=== PATIENT | female | born 1930 | race Caucasian/White ===

== ENCOUNTER 2017-10-31 15:06 | Inpatient (IN) | payer MEDICARE, BC ==
[2017-10-31] MEDS ORDERED: CYCLOBENZAPR10 MG PO (19:15)
[2017-10-31] MEDS ORDERED: COUMADIN4 MG PO (19:15)
[2017-10-31] MEDS ORDERED: CYMBALTA30 MG PO (19:16)
[2017-10-31] MEDS ORDERED: LASIX 40 MG TAB40 MG PO (19:16)
[2017-10-31] MEDS ORDERED: METOPROL TAR25 MG PO (19:17)
[2017-10-31] MEDS ORDERED: HYDROCODONE/ACE1 TAB PO (19:17)
[2017-10-31] MEDS ORDERED: ZOCOR20 M1 PO (19:18)
[2017-10-31] MEDS ORDERED: PRILOSEC20 MG PO (19:18)
[2017-10-31] MEDS ORDERED: XANAX0.25 MG PO (19:19)
[2017-10-31] MEDS ORDERED: VASOTEC2.5 MG PO (19:19)
== END 2017-11-04 11:52 | disposition home or self-care (01) | DRG 554 ==
LOC: MS2 11-04 10:20
PROVIDERS: ADMIT Orthopaedic Surgery; ATTEND Orthopaedic Surgery
DX: M17.12 Unilateral primary osteoarthritis, left knee (principal); L98.9 Disorder of the skin and subcutaneous tissue, unspecified; Z53.09 Procedure and treatment not carried out because of other contraindication

== ENCOUNTER 2018-03-06 13:57 | Inpatient (IN) | payer MEDICARE, BC ==
[~2018-03-06] VITALS: Ht 162.6 cm; Wt 64.9 kg
[~2018-03-06 13:57] MED LIST: COUMADIN4 MG PO; CYCLOBENZAPR10 MG PO; CYMBALTA30 MG PO; HYDROCODONE/ACE1 TAB PO; LASIX 40 MG TAB40 MG PO; METOPROL TAR25 MG PO; PRILOSEC20 MG PO; VASOTEC2.5 MG PO; XANAX0.25 MG PO; ZOCOR20 M1 PO
[2018-03-10] VITALS (7 sets, daily range): BP systolic 101–144; BP diastolic 40–64
[2018-03-10 12:06] LABS: ACT PARTIAL THROMBO TIME 26.4 SECONDS (20.0-32.5); INTERNATIONAL NORMALIZED RATIO 1.1 RATIO (0.7-1.3); PROTHROMBIN TIME 11.5 SECONDS (9.0-12.5)
--- NOTE | 2018-03-10 16:45 | NUR ---
BEDSIDE REPORT FROM PAYAL MAY ARRIVED ON UNIT @ 1630 VIA STRETCHER AND TRANSFERRED TO BED. LETHARGIC BUT ORIENTED, DENIED PAIN. DRESSING TO LEFT LEG CDI, PEDAL PULSES STRONG TO PALPATION. ORIENTED TO ROOM AND CALL CALDERON, VITAL SIGNS BEING MEASURED, FAMILY MEMBERS IN ROOM, WILL CONTINUE TO MONITOR
--- NOTE | 2018-03-10 20:00 | NUR ---
PATIENT RESTING IN BED WITH O2 VIA NASAL CANNULA IN PLACE. PATIENT SOB AT REST. PATIENT WITH TELE MONITOR IN PLACE. SALINE LOCK TO LEFT FOREARM INTACT AND IS HEALTHY AT THIS TIME. PATIENT WITH MULTIPLE BRUISING TO EXTREMITIES. SAFETY PRECAUTIONS REINFORCED. CALL LIGHT IN REACH. WILL CONT TO MONITOR.
--- NOTE | 2018-03-11 | NUR ---
PATIENT RESTING IN BED-MEDICATED WITH XANAX ZND ROBITUSSIN AC PER PATIENT REQUEST. SOLU-MEDROL GIVEN ORDERED. IV ZOSYN HUNG. SAFETY PRECAUTIONS REINFORCED. CALL LIGHT IN REACH. WILL CONT TO MONITOR.
[2018-03-11 00:10] VITALS: BP 122/59
--- NOTE | 2018-03-11 02:16 | NUR ---
PATIENT RESTING IN BED-ASSISTED OOB TO THE [facility] [place] WITH USE OF THE WALKER. PATIENT WAS ABLE TO VOID 350CC OF YELLOW URINE. RANDOLPH-CARE WITH SOAP AND WATER WAS DONE AND PATIENT ASSISTED BACK TO THE BED. PATIENT INSTRUCTED ON USE OF IS Q1H WHILE AWAKE-PATIENT IS ABLE TO DEMONSTRATE PROPER USE OF THE DEVICE. ENCOURAGED CDB EXERCISES. DRESSING TO KNEE IS CDL SECURED WITH KENNETH WRAP. PATIENT MEDICATED FOR POST-OP PAIN WITH DILAUDID 1MG IVP. ICE P ACK APPLIED TO POST-OP KNEE. IVF PATENT AND INFUSING AT 100CC/HR ORDERED. SAFETY PRECAUTIONS REINFORCED. CALL LIGHT IN REACH. WILL CONT TO MONITOR.
--- NOTE | 2018-03-11 04:00 | NUR ---
PATIENT APPEARS SLEEPING AT THIS TIME WITH EYES CLOSED. RESP ARE EVEN AND UNLABORED. IVF PATENT AND INFUSING AT 100CC/HR. SITE REMAINS HEALTHY. DRESSING TO LEFT KNEE INTACT AND SECURED WITH KENNETH WRAP. ICE PACK TO LEFT KNEE ORDERED. SCD'S IN PLACE. BED ALARM IN PLACE FOR PATIENT SAFETY. CALL LIGHT IN REACH. WILL CONT TO MONITOR.
[2018-03-11 04:41] VITALS: BP 136/68
[2018-03-11 05:12] LABS: HEMATOCRIT 28.3 % (37.0-47.0); HEMOGLOBIN 9.2 g/dl (12.0-16.0)
[2018-03-11 05:27] LABS: INTERNATIONAL NORMALIZED RATIO 1.1 RATIO (0.7-1.3)
--- NOTE | 2018-03-11 07:00 | NUR ---
REPORT RECEIVED FROM IKER KESSLER. PT RESTING IN BED. NO SIGNS OR SYMPTOMS OF DISTRESS AT THIS TIME. SAFETY PRECAUTOINS IN PLACE, CALL LIGHT WITHIN REACH. WILL CONTINUE TO MONITOR.
[2018-03-11 07:47] VITALS: BP 141/63
--- NOTE | 2018-03-11 08:00 | NUR ---
PT RESTING IN BED. ALERT AND ORIENTED. VS OBTAINED AND ASSESSMENT COMPLETED. RESPIRATIONS EVEN AND UNLABORED, ON RA. LUNGS SOUND CLEAR. BOWEL SOUNDS HYPOACTIVE. PEDAL PULSES STRONG. IV # 20 LF HAND, APPEARS HEALTHY, PATENT. KENNETH WRAP OVER LT KNEE, CLEAN, DRY AND IN TACT. SAFETY PRECAUTIONS IN PLACE. CALL LIGHT WITHIN REACH. WILL CONTINUE TO MONITOR.
--- NOTE | 2018-03-11 12:00 | NUR ---
PT RESTING IN BED. PT ASSISTED MOVING INTO THE RECLINER AT BEDSIDE TO EAT LUNCH PER PT REQUEST. CALL LIGHT IN REACH. SAFETY PRECAUTIONS IN PLACE. WILL CONTINUE TO MONITOR.
--- NOTE | 2018-03-11 16:00 | NUR ---
PT RESTING IN RECLINER AT BED SIDE. NO SIGNS OF DISTRESS. BED ALARM ACTIVE FOR PT SAFETY. CALL LIGHT WITHIN REACH. WILL CONTINUE TO MONITOR.
[2018-03-11 16:46] VITALS: BP 137/67
--- NOTE | 2018-03-11 17:04 | NUR ---
Patient refused physical therapy this evening stating she had just been up for a while attempting to have BM and is tired. She refused treatment, however was ok with verbal review of exercises consisting of quad sets and heel slides. The patient was left resting comfortably in bed with call light and bedside table left within reach, nurse informed of same.
[2018-03-11 19:30] VITALS: BP 151/67
--- NOTE | 2018-03-11 19:45 | NUR ---
PATIENT RESTING IN BED-AWAKE ALERT AND ORIENTEDX2 C/O POST-OP LEFT KNEE PAIN. 7/10 ON PAIN SCALE-MEDICATED WITH DILAUDID 1MG IVP FOR POST-OP PAIN AND WITH XANAX FOR ANXIETY. PATIENT WITH IV SITE TO RIGHT FOREARM SITE IS HEALTHY WITH GOOD BLOOD RETURN. LEFT KNEE DRESSING INTACT-SECURED WITH KENNETH WRAP. ICE PACK TO LEFT KNEE ORDERED. SLIGHT SWELLING NOTED TO LLE AND KNEE. SCD TO RLE IN PLACE. ENCOURAGED USE OF IS Q1H WHILE AWAKE-NEEDS REINFORCEMENT. LUNGS ARE CLEAR. ABD REMAINS DISTENDED WITH BS+. VOIDED QS 400CC OF YELLOW URINE BEFORE GOING TO BED. BED ALARM IN PLACE FOR PATIENT SAFETY. SAFETY PRECAUTIONS REINFORCED. CALL LIGHT IN REACH. WILL CONT TO MONITOR.
--- NOTE | 2018-03-11 22:23 | NUR ---
PATIENT CALLING OUT-CONFUSED AND REOIENTED TO PLACE AND TIME. ASSISTED OOB TO BSC TO VOID 300CC OF URINE AND ASSISTED BACK INTO BED. BED ALARM IN PLACE FOR PATIENT SAFETY. REINFORCED SAFETY PRECAUTIONS. CALL LIGHT IN REACH. WILL CONT TO MONITOR.
[2018-03-12 00:16] VITALS: BP 120/61
--- NOTE | 2018-03-12 02:00 | NUR ---
PATIENT SITTING UP IN RECLINER-C/O POST-OP PAIN-MEDICATED WITH PERCOCET 10/325MG PO. CONFUSED AT TIMES BUT REORIENTS EASILY. ALARM IN PLACE FOR PATIENT PROTECTION. SAFETY PRECAUTIONS REINFORCED. CALL LIGHT IN REACH.. WILL CONT TO MONITOR.
--- NOTE | 2018-03-12 03:26 | NUR ---
PATIENT RESTING IN BED AT THIS TIME-POSITIONED ON LEFT SIDE WITH EYES CLOSED. RESP ARE EVEN AND UNLABORED. BED ALARM IN PLACE. CALL LIGHT IN REACH. WILL CONT TO MONITOR.
[2018-03-12 04:00] VITALS: BP 109/47
[2018-03-12 06:10] LABS: HEMATOCRIT 24.6 % (37.0-47.0); IMMATURE GRANULOCYTES 0.4 % (0.0-5.0); MEAN CELL VOLUME 95.7 fL CALC (80.0-100.0); MEAN CORPUSCULAR HGB 31.1 pG CALC (26.0-32.0); MEAN CORPUSCULAR HGB CONC 32.5 g/L CALC (32.0-36.0); NEUT# 6.08 thou/uL (2.00-7.15); RED BLOOD COUNT 2.57 mill/uL (4.20-5.60); RED CELL DISTRI WIDTH 13.3 % (11.5-15.5)
[2018-03-12 06:22] LABS: ALBUMIN 3.4 g/dL (3.2-5.0); BILIRUBIN, TOTAL 0.7 mg/dL (0.0-1.4); CREATININE 1.4 mg/dL (0.5-1.0); MAGNESIUM 1.7 mg/dL (1.6-2.3); POTASSIUM 4.6 mmol/l (3.5-5.1); TOTAL PROTEIN 5.9 g/dL (6.3-8.2)
--- NOTE | 2018-03-12 07:00 | NUR ---
REPORT RECEIVED FROM IKER KESSLER. PT SLEEPING IN BED. NOSIGNS OR SYMPTOMS OF DISTRESS. BED ALARM ACTIVE. SAFETY PRECAUTIONS IN PLACE. WILL CONTINUE TO MONITOR.
[2018-03-12 07:59] VITALS: BP 138/52
--- NOTE | 2018-03-12 08:00 | NUR ---
PT SLEEPING IN BED, EASILY AROUSED TO VOICE. VS OBTAINED AND ASSESSMENT COMPLETED AT THIS TIME. RESPIRATIONS EVEN AND UNLABORED, ON RA. LUNGS CLEAR. IV #22 RFA, PATENT, APPEARS HEALTHY. PEDAL PULSES STRONG. STOMACH DISTENDED, BOWEL SOUNDS HYPOACTIVE.PT POST OP LEFT KNEE ARTHROPLASTY DAY # 2. L KNEE INCISION CLEAN, DRY, AND INTACT. DERMABOND IS PATENT. BED IN LOWEST POSITION, BED ALARM ACTIVE FOR PT SAFETY, CALL LIGHT WITHIN REACH. WILL CONTIUE TO MONITOR.
--- NOTE | 2018-03-12 12:00 | NUR ---
PT SITTING IN RECLINER AT BEDSIDE. RESPIRATIONS EVEN AND UNLABORED, ON RA. ALARM ACTIVE FOR PT SAFETY. CALL LIGHT WITHIN REACH. WILL CONTINUE TO MONITOR.
--- NOTE | 2018-03-12 14:57 | NUR ---
Pt was supine in bed when approached by PT. Pt was eager to get out of bed and moving again. She reported that she has been doing her HEP program while she had breaks. Pt ed on proper rolling walker usage and proper sit to stand technique. Pt with noted bandage around her proximal tibia from an open wound. Pt was able to perform proper S<>S with MIN A, VC to pt for usage of hands to prop herself up and assist her in standing. Pt ed with multiple verbal and tactile cues for posture and proper RW usage. Pt tends to take a rest break and leans on the walker, she was instructed to stand tall with hands on walker and to slightly weight bear on her dominate non surgical leg. Pt was able to ambulate 15 ft 3 seperate occasions with rest breaks in between. Pt was returned to her bedside chair with call landaverde and chair alarm on. Pt to continue with HEP program and gait mechanics.
--- NOTE | 2018-03-12 15:20 | NUR ---
AM note: Pt was supine in bed and eager to begin PT treatment. She was educated on S<>S technique and RW usage with step to gait pattern. Pt with noted ROM from 15-65 deg. Pt was MIN A for S<>S and was able to ambulate 15 ft x 2 with a 20 second break in between (note: pt attempted to rest by lean her arms on the walker, pt ed on standing tall and weigh shifting to non surgical leg). Pt was returned to room to sit in her bedside chair, call landaverde next to her and chair alarm set. Pt to cont with HEP program and gait training.
[2018-03-12 15:49] VITALS: BP 112/46
--- NOTE | 2018-03-12 16:24 | NUR ---
PT RESTING IN RECLINER AT BEDSIDE. RESPIRATIONS EVEN AND UNLABORED ON RA. BED ALARM ACTIVE FOR PT SAFETY. SAFETY PRECAUTIONS IN PLACE. CALL LIGHT WITHIN REACH. WILL CONTINUE TO MONITOR.
[2018-03-12 19:17] VITALS: BP 139/81
--- NOTE | 2018-03-12 19:30 | NUR ---
PATIENT RESTING IN BED AT THIS TIME-AWAKE ALERT AND ORIENTEDX3. SALINE LOCK TO RIGHT FOREARM INTACT AND APPEARS HEALTHY AT THIS TIME. LEFT KNEE INCISION INTACT AND WELL APPROXIMATED WITH DERMABOND. ENCOURAGED USE OF IS Q1H WHILE AWAKE. SCD TO RLE. DECLINES ANY ICE PACK AT THIS TIME, BED ALARM IN PLACE FOR PATIENT SAFETY. SAFETY PRECAUTIONS REINFORCED, CALL LIGHT IN REACH, WILL CONT TO MONITOR.
--- NOTE | 2018-03-12 20:30 | NUR ---
PATIENT MEDICATED FOR PAIN WITH PERCOCET FOR POST-OP PAIN. GIVEN LACTULOSE FOR POST-OP CONSTIPATION. XANAX 0.5MG GIVEN TO ASSIST WITH SLEEPING. BED ALARM IN PLACE FOR PATIENT SAFETY. CEDRICK LIGHT IN REACH. WILL CONT TO MONITOR.
--- NOTE | 2018-03-12 22:26 | NUR ---
APPEARS SLEEPING POSITIONED ON LEFT SIDE WITH EYES CLOSED. RESP ARE EVEN AND UNLABORED. BED ALARM IN PLACE. CALL LIGHT IN REACH. WILL CONT TO MONITOR.
[2018-03-13] VITALS (10 sets, daily range): BP systolic 100–126; BP diastolic 45–64
--- NOTE | 2018-03-13 01:44 | NUR ---
APPEARS SLEEPING AT THIS TIME WITH HOB ELEVATED AND EYES CLOSED. BED ALARM IN PLACE FOR PATIENT SAFETY. CALL LIGHT IN REACH. WILL CONT TO MONITOR.
--- NOTE | 2018-03-13 05:00 | NUR ---
PATIENT UP TO THE BSC-PASSING GAS BUT NO BM YET. ASSISED BACK TO THE BED. MEDICATED FOR POST-OP LEFT KNEE PAIN WITH PERCOCET. BED ALARM IN PLACE. CALL LIGHT IN REACH. WILL CONT TO MONITOR.
--- NOTE | 2018-03-13 07:00 | NUR ---
REPORT RECEIVED FROM IKER KESSLER.PT RESTING IN SUPINE POSITION;INTRODUCED SELF TO PT AND POC DISCUSSED;RESPIRATIONS EVEN AND UNLABORED ON RA;PT DENIES ANY CURRENT PAIN OR NEEDS;FALL PRECAUTIONS IN PLACE WITH BED IN THE LOWEST POSITION AND BED ALARM ON FOR SAFETY;CALL LIGHT IN REACH;WILL CONTINUE TO MONITOR
[2018-03-13 07:36] LABS: IMMATURE GRANULOCYTES 0.3 % (0.0-5.0); MEAN CELL VOLUME 95.5 fL CALC (80.0-100.0); MEAN CORPUSCULAR HGB 30.7 pG CALC (26.0-32.0); MEAN CORPUSCULAR HGB CONC 32.1 g/L CALC (32.0-36.0); RED BLOOD COUNT 1.99 mill/uL (4.20-5.60); RED CELL DISTRI WIDTH 13.5 % (11.5-15.5)
--- NOTE | 2018-03-13 07:55 | NUR ---
CALL RECEIVED BY IKER GARZA; CRITICAL HEMOGLOBIN OF 6.1;RESULTS TO BE CALLED TO .
[2018-03-13 07:56] LABS: HEMOGLOBIN 6.1 g/dl (12.0-16.0)
--- NOTE | 2018-03-13 08:04 | NUR ---
NOTIFIED OF CRITICAL HEMOGLOBIN OF 6.1; NEW ORDERS TO TRANSFUSE 2 UNITS OF PRBC'S OBTAINED.WILL CONTINUE TO MONITOR
[2018-03-13 08:05] LABS: BILIRUBIN, TOTAL 0.7 mg/dL (0.0-1.4); CREATININE 1.4 mg/dL (0.5-1.0); MAGNESIUM 1.9 mg/dL (1.6-2.3); POTASSIUM 4.2 mmol/l (3.5-5.1); TOTAL PROTEIN 5.6 g/dL (6.3-8.2)
[2018-03-13 08:07] LABS: INTERNATIONAL NORMALIZED RATIO 1.1 RATIO (0.7-1.3); PROTHROMBIN TIME 11.4 SECONDS (9.0-12.5)
--- NOTE | 2018-03-13 09:05 | NUR ---
PT OOB RESTING IN RECLINER;VS OBTAINED AND ASSESSMENT COMPLETED;PT AMBULATED TO BEDSIDE COMMODE AND VOIDED CLEAR/YELLOW URINE;RE-POSITIONED INTO RECLINER;RESPIRATIONS EVEN AND UNLABORED ON RA, CLEAR LUNG SOUNDS NOTED;I.S. AT BEDSIDE AND PT DEMONSTRATED USE;ENCOURAGED TO USE 10X PER HOUR;ABDOMEN DISTENDED/SOFT ON PALPATION, LACTULOSE TO BE GIVEN TO ENCOURAGED BM.LAST BM 03/10/18;WEAK PEDAL PULSES;PT IS A POST OP LEFT KNEE ARTHROPLASTY 03/10/18;EDEMA NOTED TO LEFT KNEE;DEROBOND INTACT;SMALL OPEN AREA NOTED BELOW THE KNEE WHICH IS SECURED WITH TELFA,KERLEX AND PAPER TAPE DRESSING;LEFT KNEE WARM TO TOUCH;ENCOURAGED ELEVATION AND APPLICATION OF ICE PACKS;SKIN INTACT;#22G TO RIGHT FOREARM FLUSHED AND PATENT,SITE APPEARS HEALTHY;PT REPORTS PAIN TO LEFT KNEE RATING 5/10 ON THE PAIN SCALE AND REQUESTS PAIN MEDICATION;PT MEDICATED WITH PRN PERCOCET 10/325MG 1 COMBO PO;PT DENIES ANY ADDITIONAL NEEDS AND IS ENCOURAGED TO CALL FOR ASSISTANCE IF NEEDED;FALL PRECAUTIONS REMAIN IN PLACE WITH BED ALARM ON FOR PT SAFETY;CALL LIGHT IN REACH;WILL CONTINUE TO MONITOR
--- NOTE | 2018-03-13 09:50 | NUR ---
AT BEDSIDE DISCUSSING POC.
--- NOTE | 2018-03-13 10:00 | NUR ---
CONSENT OF 2 UNITS OF PRBC'S OBTAINED AT THIS TIME.PT HEMOGLOBIN ON REPEAT 6.8.
--- NOTE | 2018-03-13 10:48 | NUR ---
TX WILL BE DEFERRED TODAY. PT WAS WITH CRITICAL HEMOGLOBIN OF 6.1 AND WILL HAVE PRBC TRANSFUSION. [facility]
--- NOTE | 2018-03-13 11:48 | NUR ---
FIRST UNIT OF PRBC'S STARTED AT THIS TIME BY JONNA AND IKER NAVARRETE;PT EDUCATED ON S/S OF TRANSFUSION REACTIONS AND VERBALIZES UNDERSTANDING;JONNA TO REMAIN AT BEDSIDE FOR INITIAL 15 MINS.WILL CONTINUE TO MONITOR
--- NOTE | 2018-03-13 12:48 | NUR ---
PT OOB RESTING IN RECLINER;VS OBTAINED AND STABLE;PT DENIES ANY CURRENT S/S OF TRANSFUSION REACTION JUST REPORTS BEING "TIRED";RESPIRATIONS EVEN AND UNLABORED ON RA;ENCOURAGED PT TO EXPRESS ANY NEEDS OR CONCERNS;CALL LIGHT IN REACH;WILL CONTINUE TO MONITOR
--- NOTE | 2018-03-13 17:20 | NUR ---
PT OOB RESTING IN RECLINER;RESPIRATIONS EVEN AND UNLABORED ON RA;PT REPORTS BACK PAIN RATING 8/10 ON THE PAIN SCALE AND REQUESTS PAIN MEDICATION;PT MEDICATED WITH PRN PERCOCET 10/325MG PO 1 COMBO;2ND UNIT OF PRBC'S STARTED AT THIS TIME;REVIEWED S/S OF BLOOD TRANSFUSION REACTION AND PT VERBALIZES UNDERSTANDING;WRITTER TO REMAIN AT BEDSIDE FOR INITIAL 15 MINS;WILL CONTINUE TO MONITOR
--- NOTE | 2018-03-13 18:19 | NUR ---
PT RESTING IN RECLINER;2ND UNIT OF PRBC'S TRANSFUSING WITH EASE;PT DENIES ANY CURRENT NEEDS;FALL PRECAUTIONS IN PLACE;WILL CONTINUE TO MONITOR
[2018-03-14] VITALS: BP 120/56
[2018-03-14 03:54] VITALS: BP 128/64
--- NOTE | 2018-03-14 04:35 | NUR ---
pt assisted to chair for bsc with 2 person assist. no bm. pt is passing gas. urine noted to be dark rod. drgon left knee reinforced. bed alarm in place. call light in reach. will monitor.
[2018-03-14 05:53] LABS: IMMATURE GRANULOCYTES 0.4 % (0.0-5.0); MEAN CELL VOLUME 93.4 fL CALC (80.0-100.0); MEAN CORPUSCULAR HGB 30.8 pG CALC (26.0-32.0); NEUT# 4.66 thou/uL (2.00-7.15); RED BLOOD COUNT 3.31 mill/uL (4.20-5.60)
[2018-03-14 05:55] LABS: HEMATOCRIT 30.9 % (37.0-47.0); HEMOGLOBIN 10.2 g/dl (12.0-16.0)
[2018-03-14 06:19] LABS: ALBUMIN 3.4 g/dL (3.2-5.0); BILIRUBIN, TOTAL 1.4 mg/dL (0.0-1.4); CREATININE 1.3 mg/dL (0.5-1.0); MAGNESIUM 2.1 mg/dL (1.6-2.3); TOTAL PROTEIN 6.2 g/dL (6.3-8.2)
[2018-03-14 06:22] LABS: POTASSIUM 5.1 mmol/l (3.5-5.1)
--- NOTE | 2018-03-14 07:40 | NUR ---
INTRODUCED SELF TO PT, DISCUSSED POC, PT IN AGREEMENT. VOICES NO NEEDS OR COMPLAINTS AT THIS TIME. CALL LIGHT IN REACH, BED ALARM X1,CONTINUE TO MONITOR.
[2018-03-14 08:16] VITALS: BP 111/48
[2018-03-14 10:00] LABS: INTERNATIONAL NORMALIZED RATIO 1.1 RATIO (0.7-1.3); PROTHROMBIN TIME 11.6 SECONDS (9.0-12.5)
--- NOTE | 2018-03-14 10:49 | NUR ---
PT MEDICATED FOR PAIN, NO SIGNS OF DISTRESS NOTED, RESP EVEN AND UNLABORED. PT STATES PAIN 7/10 CALL LIGHT IN REACH,CONTINUE TO MONITOR.
--- NOTE | 2018-03-14 11:18 | NUR ---
PHYSICAL THERAPIST AT BEDSIDE, CONTINUE TO MONITOR
--- NOTE | 2018-03-14 12:00 | NUR ---
NOTIFIED BY PHYSICAL THERAPIST BLEEDING TO L KNEE. NOTED SCANT AMOUNT OF BLOOD TO L KNEE. CLEANSED AREA, NO ACTIVE BLEEDING NOTED. ABD APPLIED TEMPORARILY, PT TOLERATED WELL.
--- NOTE | 2018-03-14 12:12 | NUR ---
PT WAS SEEN FOR FUNCTIONAL ACTIVITY. SHE WAS ABLE TO PERFORM [id number] FROM RECLINER WITH MOD A AND VERBAL CUES ON HAND PLACEMENT AND PROPER POSTURE PT TENDS TO STOOP. PT WAS NOT WEIGHT BEARING ON L LE WITH KNEE SLIGHT FLEXED POSITION. SHE WAS THEN INSTRUCTED TO DO WEIGHT SHIFTING ON B LE WHICH SHE TOLERATED. PRIOR TO AMBULATION, KNEE STARTED TO BLEED. PT WAS ASSISTED BACK TO RECLINER, ELEVATED THE LEG REST AND ADVISED THE NSG. LEFT PT WITH CALL CALDERON WITHIN REACH. WILL RE-ATTEMPT GAIT TRAINING IN THE AFTERNOON.
[2018-03-14 12:40] VITALS: BP 103/47
[2018-03-14 15:30] VITALS: BP 103/67
--- NOTE | 2018-03-14 17:10 | NUR ---
PT REFUSED TX. STATED THAT SHE ONLY WANTED TO REST.
--- NOTE | 2018-03-14 19:28 | NUR ---
report recieved from aleyda Orozco. poc discussed. pt voiced understanding. will monitor.
[2018-03-14 19:50] VITALS: BP 128/70
--- NOTE | 2018-03-14 20:20 | NUR ---
pt resting in bed. pt c/o pain lortab admininstered for back pain. pt assisted to bed. pt refused lactulose states she has been having loose stools all day, will continue to monitor.
[2018-03-15 00:05] VITALS: BP 124/63
[2018-03-15 03:50] VITALS: BP 115/59
--- NOTE | 2018-03-15 04:00 | NUR ---
pt resting in bed eyes closed. easily awakened. no pain or distress noted. bed in lowest postion. will continue to monitor.
[2018-03-15 06:27] LABS: HEMOGLOBIN 8.6 g/dl (12.0-16.0); IMMATURE GRANULOCYTES 0.3 % (0.0-5.0); MEAN CELL VOLUME 92.5 fL CALC (80.0-100.0); MEAN CORPUSCULAR HGB 30.6 pG CALC (26.0-32.0); MEAN CORPUSCULAR HGB CONC 33.1 g/L CALC (32.0-36.0); NEUT# 5.2 thou/uL (2.00-7.15); RED BLOOD COUNT 2.81 mill/uL (4.20-5.60); RED CELL DISTRI WIDTH 14.6 % (11.5-15.5)
[2018-03-15 06:40] LABS: INTERNATIONAL NORMALIZED RATIO 1.3 RATIO (0.7-1.3); PROTHROMBIN TIME 13.7 SECONDS (9.0-12.5)
[2018-03-15 06:44] LABS: CREATININE 1.3 mg/dL (0.5-1.0); MAGNESIUM 2.1 mg/dL (1.6-2.3); POTASSIUM 4.7 mmol/l (3.5-5.1)
--- NOTE | 2018-03-15 08:20 | NUR ---
PT SITTING IN RECLINER AT BEDSIDE, NO SIGNS OF DISTRESS NOTED, RESP EVEN AND UNLABORED. ASSESSMENT COMPETED, INCISION TO L KNEE MANAGER OF NETWORK; CLEAN DRY AND INTACT. PT VOICES NO COMPLAINTS AT THIS TIME. CALL LIGHT IN REACH,CONTINUE TO MONITOR.
[2018-03-15 08:22] VITALS: BP 124/44
--- NOTE | 2018-03-15 14:10 | NUR ---
PT RESTING IN BED, NO SIGNS OF DISTRESS NOTED, RESP EVEN AND UNLABORED. COUMADIN GIVEN, PT VOICES NO NEEDS OR COMPLAINTS AT THIS TIME. CALL LIGHT IN REACH,CONTINUE TO MONITOR.
[2018-03-15 16:06] VITALS: BP 139/69
--- NOTE | 2018-03-15 17:40 | NUR ---
PT SITTING IN RECLINER EATING DINNER, NO SIGNS OF DISTRESS NOTED, RESP EVEN AND UNLABORED. CALL LIGHT IN REACH,CONTINUE TO MONITOR.
[2018-03-15 19:25] VITALS: BP 137/74
--- NOTE | 2018-03-15 20:09 | NUR ---
PATIENT RESTING IN BED AT THIS TIME-AWAKE ALERT AND ORIENTEDX3. PATIENT WAS UP TO THE BSC EARLIER AND VOIDED 300CC OF YELLOW URINE. LEFT KNEE AND LEFT LEG IS SWOLLEN-LEFT KNEE INCISION IS INTACT WITH DERMABOND, WELL APPROXIMATED AND ECCYMOTIC. NO DRAINAGE NOTED. LEFT FOOT IS ALSO SWOLLEN 2+. PULSES ARE PRESENT. PATIENT WITH SALINE LOCK TO RIGHT FOREARM INTACT AND APPEARS HEALTHY AT THIS TIME. PATIENT ENCOURAGED TO USE IS Q1H WHILE AWAKE AND IS ABLE TO DEMONSTRATE PROPER USE OF THE DEVICE. SAFETY PRECAUTIONS REINFORCED. CALL LIGHT IN REACH. WILL CONT TO MONITOR.
--- NOTE | 2018-03-15 23:46 | NUR ---
APPEARS SLEEPING WITH HOB ELEVATED AND EYES CLOSED. RESP ARE EVEN AND UNLABORED. BED ALARM IN PLACE FOR PATIENT SAFETY. CALL LIGHT IN REACH. WILL CONT TO MONITOR.
[2018-03-16 04:00] VITALS: BP 133/69
--- NOTE | 2018-03-16 04:14 | NUR ---
PATIENT RESTING IN BED-LAB WORK DRAWN. PATIENT ASSISTED OOB TO BSC TO VOID. ASSISTED BACK TO BED. SAFETY PRECAUTIONS REINFORCED. BED ALARM IN PLACE FOR PATIENT SAFETY. CALL LIGHT IN REACH. WILL CONT TO MONITOR.
--- NOTE | 2018-03-16 05:16 | NUR ---
PATIENT ASSISTED TO RECLINER. LEFT FOOT AND LE REMAINS EDEMATOUS. ELEVATED IN RECLINER. NEW IV SITE STARTED TO LEFT HAND-#22 GAUGE WITH GOOD BLOOD RETURN. IV SITE TO RIGHT FOREARM D/C'ED-SITE OUTDATED. SAFETY PRECAUTIONS REINFORCED. CALL LIGHT IN REACH. WILL CONT TO MONITOR.
[2018-03-16 05:32] LABS: HEMATOCRIT 26.6 % (37.0-47.0); HEMOGLOBIN 8.8 g/dl (12.0-16.0); IMMATURE GRANULOCYTES 0.4 % (0.0-5.0); MEAN CELL VOLUME 92.7 fL CALC (80.0-100.0); MEAN CORPUSCULAR HGB 30.7 pG CALC (26.0-32.0); MEAN CORPUSCULAR HGB CONC 33.1 g/L CALC (32.0-36.0); NEUT# 5.55 thou/uL (2.00-7.15); RED BLOOD COUNT 2.87 mill/uL (4.20-5.60)
[2018-03-16 05:40] LABS: CREATININE 1.1 mg/dL (0.5-1.0); MAGNESIUM 2.1 mg/dL (1.6-2.3); POTASSIUM 4.7 mmol/l (3.5-5.1)
[2018-03-16 05:44] LABS: INTERNATIONAL NORMALIZED RATIO 1.7 RATIO (0.7-1.3)
[2018-03-16 07:12] VITALS: BP 131/68
--- NOTE | 2018-03-16 07:12 | NUR ---
PT RESTING IN RECLINER AT BEDSIDE, NO SIGNS OF DISTRESS NOTED, RESP EVEN AND UNLABORED. PT ALERT AND ORIENTED X3, EDEMA NOTED TO LLE, INCISION DAJUAN;CDI PEDAL PULSES EQUAL AND WEAK BILAT. PT VOICES NO COMPLAINTS OF PAIN AT THIS TIME. ASSESSMENT COMPLETED AT THIS TIME. CALL LIGHT IN REACH,CONTINUE TO MONITOR.
[2018-03-16 08:42] VITALS: BP 131/68
--- NOTE | 2018-03-16 10:23 | NUR ---
Patient is seen for review nad demonstration of her exercises. She does not remember them. She demonstrated quad set and heel slodes x 30 repos each. Her actual AROM is 8-75 PROM 3-85 She is able to stand with CGA of 1 and ambulate 40 feet x 2 WBAT and even worked on a step through gait She remains a good rehab candidate and will do well upon DC
[2018-03-16] MEDS ORDERED: PANTOPRAZOLE SO40 M1 PO (12:23)
[2018-03-16] MEDS ORDERED: XANAX0.25 MG PO (12:25)
[2018-03-16] MEDS ORDERED: PERCOCET1 TA4 PO (13:00)
--- NOTE | 2018-03-16 14:00 | NUR ---
PT SITTING IN RECLINER, MEDICATED FOR PAIN 10/10 AND COUMADIN. DISCUSSED PLANS FOR DISCHARGE, PT IN AGREEMENT. DISCHARGE FORMS SIGNED. CALL LIGHT IN REACH,CONTINUE TO MONITOR, AWAINTING TRANSPORT.
--- NOTE | 2018-03-16 15:30 | NUR ---
Discharge instructions given. Patient verbalizes understanding of same. Discharged in stable condition via [facility] to [facility] with staff. All belongings sent with pt.
--- NOTE | 2018-03-16 15:46 | NUR ---
REPORT GIVEN ADELINE TO ABDOULAYE VALLADARES.
== END 2018-03-16 15:34 | DRG 470 ==
LOC: MS2 03-10 10:23
PROVIDERS: Internal Medicine Nephrology; Nurse Practitioner Family; ADMIT Orthopaedic Surgery; ATTEND Orthopaedic Surgery
PROC: 0SRD0J9 Replacement of Left Knee Joint with Synthetic Substitute, Cemented, Open Approach (ICD-10-PCS; principal; 2018-03-10)
PROC: 3E02340 Introduction of Influenza Vaccine into Muscle, Percutaneous Approach (ICD-10-PCS; 2018-03-11)
PROC: 30233N1 Transfusion of Nonautologous Red Blood Cells into Peripheral Vein, Percutaneous Approach (ICD-10-PCS; 2018-03-13)
PROC: 30233N1 Transfusion of Nonautologous Red Blood Cells into Peripheral Vein, Percutaneous Approach (ICD-10-PCS; 2018-03-13)
DX: M17.12 Unilateral primary osteoarthritis, left knee (principal); D62 Acute posthemorrhagic anemia; I10 Essential (primary) hypertension; E78.5 Hyperlipidemia, unspecified; F41.9 Anxiety disorder, unspecified; K59.00 Constipation, unspecified; Z95.2 Presence of prosthetic heart valve; Z79.01 Long term (current) use of anticoagulants; Z23 Encounter for immunization; D64.9 Anemia, unspecified
CPT/HCPCS: J1650; P9016

== ENCOUNTER → 2018-05-05 | Outpatient (REF) | payer MEDICARE, BC ==
[~2018-05-05] MED LIST changes: +PANTOPRAZOLE SO40 M1 PO; +PERCOCET1 TA4 PO
[2018-05-05 17:49] LABS: HEMATOCRIT 30.1 % (37.0-47.0); HEMOGLOBIN 9.2 g/dl (12.0-16.0); MEAN CORPUSCULAR HGB 30.4 pG CALC (26.0-32.0); MEAN CORPUSCULAR HGB CONC 30.6 g/L CALC (32.0-36.0); RED BLOOD COUNT 3.03 mill/uL (4.20-5.60)
[2018-05-05 17:52] LABS: MEAN CELL VOLUME 99.3 fL CALC (80.0-100.0)
[2018-05-05 18:11] LABS: ALBUMIN 3.9 g/dL (3.2-5.0); BILIRUBIN, TOTAL 0.8 mg/dL (0.0-1.4); CREATININE 1.4 mg/dL (0.5-1.0); POTASSIUM 4.5 mmol/l (3.5-5.1); TOTAL PROTEIN 6.7 g/dL (6.3-8.2)
== END | disposition home or self-care (01) ==
LOC: LAB 16:36
PROVIDERS: ATTEND Internal Medicine
DX: N18.3 Chronic kidney disease, stage 3 (moderate) (principal); M25.512 Pain in left shoulder; R60.0 Localized edema; Z79.01 Long term (current) use of anticoagulants; Z95.2 Presence of prosthetic heart valve